=== PATIENT | female | born 1935 | race Caucasian/White ===

== ENCOUNTER → 2019-03-11 | Outpatient (CLI) | payer OTHER ==
[~2019-03-11] MED LIST: ALTACE10 M1 PO; AMOXICILLIN875 MG PO; ASPIRIN EC81 M1 PO; CIPROFLOXACIN500 M1 PO; COREG CR20 MG PO; CRESTOR5 MG PO; ENTOCORT EC 3 MG3 M1 PO; FLAGYL500 MG PO; METAMUCIL PAC1 UDPK1 GT; OMEPRAZOLE 20 M20 MG PO; TRAMADOL 50 MG50 MG PO
== END ==
LOC: HYPER 11:27
DX: L98.422 Non-pressure chronic ulcer of back with fat layer exposed (principal); L02.212 Cutaneous abscess of back [any part, except buttock and flank]; F03.90 Unspecified dementia, unspecified severity, without behavioral disturbance, psychotic disturbance, mood disturbance, and anxiety; F32.9 Major depressive disorder, single episode, unspecified

== ENCOUNTER → 2019-03-24 | Outpatient (CLI) | payer OTHER | LOC: HYPER 07:03 | DX: L98.422 Non-pressure chronic ulcer of back with fat layer exposed (principal); L02.212 Cutaneous abscess of back [any part, except buttock and flank]; F03.90 Unspecified dementia, unspecified severity, without behavioral disturbance, psychotic disturbance, mood disturbance, and anxiety; F32.9 Major depressive disorder, single episode, unspecified ==